=== PATIENT | male | born 1945 | race Caucasian/White ===

== ENCOUNTER 2016-09-15 14:10 | Inpatient (IN) | payer OTHER ==
[~2016-09-15] VITALS: Ht 208.3 cm; Wt 74.8 kg
[2016-09-15 16:55] VITALS: BP 130/91
--- NOTE | 2016-09-15 16:55 | NUR ---
ADMISSION NOTES/ PT DIRECT ADMIT BROUGHT VIA AMBULANCE 71/Y OLD ON 5150 HOLD. ACCORDING ON 5150 HOLD PT. 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 ON FACE TO FACE ASSESSMENT PT. ANXIOUS PARANOID FORGETFUL, A/OX1 UNSTEADY GAIT . V/S TAKEN T-98.1, P-107, BP-130/91, R-20, O2-97 ROOM AIR, NO RESPIRATORY DISTRESS , SKIN ASSESSMENT DONE SKIN INTACT PT.AMBULATORY BPR. PT BELONGING AND CONTRABAND CHECKED . PT RIGHT HAND BOOK GIVEN AND EXPLAINED . DR. MEMBRENO AND DR. RICHARD NOTIFIED OF THE ADMISSION AND NEW MEDICATION, WILL CONTINUE TO MONITORING .
[2016-09-15] MEDS ORDERED: MAGNESIUM HYDROXIDE 30 ML UDC PO PRN (17:00)
[2016-09-15] MEDS ORDERED: ACETAMINOPHEN 325 MG TABLET PO PRN (17:00)
[2016-09-15] MEDS: clonazePAM 0.5 MG TABLET PO PRN (17:10)
--- NOTE | 2016-09-15 17:10 | NUR ---
administered klonopin 0.5 mg po prn for anxiety, paranoia, v/s stable bp-130/91, p-107, continued monitoring.
--- NOTE | 2016-09-15 18:44 | NUR ---
MRSA OF [facility] DONE CALL LAB FOR PICKUP.
--- NOTE | 2016-09-15 19:30 | NUR ---
RN OPENING NOTES: RECEIVED PATIENT IN DINING ROOM AWAKE ALERT ORIENTED X1-2 AND VERBALLY RESPONSIVE. PT NOTED TO BE FORGETFUL, ANXIOUS AND THOUGHTS ARE DISORGANIZED. VERBALIZED HE IS WORRIED ABOUT HIS FAMILY THAT THEY MIGHT BE IN AN ACCIDENT BUT COULD NOT RECALL ANY OF THEIR NAMES. RENDERED EFFECTIVE AND THERAPEUTIC COMMUNICATION. DENIES SI/ HI. PT IS AMBULATORY WITH STEADY GAIT. SAFETY CHECKS DONE Q15 MINS. NEEDS ATTENDED AT ALL TIMES. MONITORED FOR SAFETY AND BEHAVIOR.
[2016-09-15 20:01] VITALS: BP 121/84
[2016-09-16] MEDS: clonazePAM 0.5 MG TABLET PO PRN (06:49)
[2016-09-16 07:05] LABS: ALBUMIN 3.5 g/dL (3.4-5.0); BILIRUBIN,TOTAL 0.7 mg/dL (0.2-1.0); CALCIUM, SERUM 9.1 mg/dL (8.5-10.1); POTASSIUM 3.9 mmol/L (3.5-5.1); TOTAL PROTEIN, SERUM 6.8 g/dL (6.4-8.2)
[2016-09-16] MEDS ORDERED: LORAZEPAM INJ 2 MG/ML VIAL IM STA (07:24)
--- NOTE | 2016-09-16 07:24 | NUR ---
GET PATIENT IN THE OBSERVATION ROOM, CONFUSED, PARANOID, COMBATIVE, EXTREMELY AGITATED, STRIKING OUT STAFF MEMBERS, UNABLE TO CONTROL BEHAVIOR, BEHAVIOR DANGER TO SELF, AND DANGER TO OTHERS, DELUSIONAL, REORIENTED TO PERSON, 1:1 INTERACTION, PATIENT REFUSED V/S TO BE TAKEN. CALLED JUAN A AL AT THIS TIME, CALLED MD AND GET ORDER FOUR POINT RESTRAIN, AND ZYPREXA 5MG/ML IM, AND ATIVAN 1 MG/ML IM X1 NOW ORDER TAKEN AND CARRIED OUT. WITH HELP OF STAFF MEMBERS RN'S, AND DESK ATTENDANT'S PUT 4 POINT RESTRAIN, AND CONTINUED MONITORING FOR SAFETY AND BEHAVIOR Q 15 MINS.
[2016-09-16] MEDS ORDERED: OLANZAPINE 10 MG VIAL IM ONE (07:30)
--- NOTE | 2016-09-16 07:35 | NUR ---
ADMINISTERED ATIVAN 1 MG/ML IM, AND ZYPREXA 5MG/ML IM X1, RIGHT OUTER GLUTEAL AREA PRESCRIBED, 1:1 SITTER NEXT TO THE PATIENT FOR SAFETY CONTINUED MONITORING FOR SAFETY AND BEHAVIOR, AND ALSO MONITORING FOR CIRCULATION.
--- NOTE | 2016-09-16 08:00 | NUR ---
FAMILY ALSO NOTIFIED SON NAME
--- NOTE | 2016-09-16 08:30 | NUR ---
PATIENT CALM AT THIS TIME AFTER MEDICATION WERE ADMINISTERED, A/O X1/2, V/S TAKEN BP-122/81, P-100, R-19, O2 -99 ROOM AIR, REMOVED RESTRAINTS ACCORDING PATIENT BEHAVIOR, SKIN CHECKED NO SKIN BREAKDOWN NOTED. 1:1 SITTER ACCOMPANIED NEXT TO THE DINNING ROOM.
--- NOTE | 2016-09-16 15:29 | NUR ---
Initial Discharge Plan: Patient was residing at [address] [address] . Patient needs placement. SW spoke with patient's son Evan Morgan who stated that he was actively looking for a memory care facility for the patient. RAMILA will follow-up with MD and family regarding most appropriate care and help form a safe and proper discharge.
[2016-09-16 16:00] VITALS: BP 127/90
--- NOTE | 2016-09-16 16:53 | NUR ---
RAMILA faxed Clinical's (Psych H&P, Med H&P, Med list, 5150 hold, face sheet, and nursing note) to case investigator Fahad ( / phone: [phone]) from [facility]. RAMILA will follow-up. AUTh # [phone]
[2016-09-16] MEDS: QUETIAPINE FUMARATE 100 MG TABLET PO SCH (17:35)
[2016-09-16] MEDS: DIVALPROEX SODIUM 125 MG CAP.SPRINK PO SCH (20:15)
[2016-09-16] MEDS: MIRTAZAPINE 15 MG TABLET PO SCH (20:47)
--- NOTE | 2016-09-16 20:48 | NUR ---
GPS/RN NOTE: PATIENT IS ABOUT READY TO GO TO BED, REMERON 15 MG TAB 1 PO GIVEN .
[2016-09-16] MEDS: TEMAZEPAM 7.5 MG CAPSULE PO PRN (20:56)
--- NOTE | 2016-09-16 20:56 | NUR ---
GPS/RN NOTE: RESTORIL 15 MG CAP 1 PO GIVEN.
--- NOTE | 2016-09-16 21:58 | NUR ---
GPS/RN NOTE: PATIENT ASLEEP, SLEEPING PILL EFFECTIVE.
[2016-09-17 06:49] LABS: BASOPHILS % (AUTO) 0.7 % (0.0-2.0); EOSINOPHILS # (AUTO) 0.4 /CMM (0.0-0.7); HEMATOCRIT 43 % (39-51); HEMOGLOBIN 14.1 g/dL (13.5-17.5); LYMPHOCYTES # (AUTO) 1.4 /CMM (0.8-4.8); LYMPHOCYTES % (AUTO) 18.7 % (20.0-44.0); MEAN CORPUSCULAR HEMOGLOBIN 31 PG (26.0-33.0); MEAN CORPUSCULAR HGB CONC 33 g/dl (31.0-36.0); MEAN CORPUSCULAR VOLUME 93 fL (80-96); MONOCYTES % (AUTO) 13.9 % (2.0-12.0); NEUTROPHILS # (AUTO) 4.7 /CMM (1.8-8.9); NEUTROPHILS % (AUTO) 61.7 % (43.0-81.0); PLATELET COUNT (AUTO) 244 /CMM (150-450); RDW COEFFICIENT OF VARIATION 13.5 (11.5-15.0); RED BLOOD CELL COUNT(AUTO) 4.57 MIL/uL (4.5-6.0); WHITE BLOOD COUNT (AUTO) 7.5 K/uL (4.3-11.0)
[2016-09-17 07:10] LABS: PHOSPHORUS 3.4 mg/dL (2.5-4.9)
[2016-09-17] MEDS: QUETIAPINE FUMARATE 100 MG TABLET PO SCH ×2 (08:30→16:21)
[2016-09-17] MEDS: DIVALPROEX SODIUM 125 MG CAP.SPRINK PO SCH ×2 (08:30→21:25)
[2016-09-17 08:52] VITALS: BP 141/78
--- NOTE | 2016-09-17 10:11 | NUR ---
Psychosocial assessment was reviewed and I concur with the information provided. No changes are necessary. Marlene Ramírez, ACCESS ANALYST [id number] Addendum: 09/17/16 at 1011 by MARLENE RAMÍREZ SW Amended: Links added.
--- NOTE | 2016-09-17 14:46 | NUR ---
[id number]: GAVE TYLENOL 650 MG PO DUE TO GENERALIZE PAIN 5/10 UPON PT REQUEST AND WILL CONTINUE TO MONITOR FOR EFFECTIVENESS OF MEDICATION.
[2016-09-17] MEDS: MAG HYDROX/AL HYDROX/SIMETH 30 ML UDC PO PRN (14:47)
--- NOTE | 2016-09-17 14:47 | NUR ---
[id number]: GAVE MAALOX 30 ML PO DUE TO INDIGESTION UPON PT REQUEST AND WILL CONTINUE TO MONITOR FOR EFFECTIVENESS OF MEDICATION
[2016-09-17 16:00] VITALS: BP 126/73
--- NOTE | 2016-09-17 16:02 | NUR ---
[id number]-[id number]: PT IS ANXIOUS, RESTLESS, EASILY AGITATED, UNPREDICTABLE, NEEDS CONSTANT REDIRECTION AND PROMPTING. PT IS DELUSIONAL INTERMITTENTLY THROUGHOUT THE DAY. PT AT TIMES IS CRYING AND REMINISCING ABOUT HIS FAMILY. PT STATED, "I DON'T UNDERSTAND MYSELF SOME TIMES." ENCOURAGE PT TO VERBALIZE EMOTIONS AND CONCERNS. ESCORTED PT AROUND THE UNIT TO DISTRACT PT FROM GETTING UPSET. SAFETY PRECAUTIONS IMPLEMENTED. WILL CONTINUE TO MONITOR FOR SAFETY AND BEHAVIOR EVERY 30 MINUTES.
[2016-09-17] MEDS: clonazePAM 0.5 MG TABLET PO PRN (16:15)
--- NOTE | 2016-09-17 16:16 | NUR ---
[id number]: GAVE KLONOPIN 0.5 MG PO DUE TO SEVERE ANXIETY UPON PT REQUEST AND WILL CONTINUE TO MONITOR FOR EFFECTIVENESS OF MEDICATION
--- NOTE | 2016-09-17 16:22 | NUR ---
UR Update: RAMILA faxed Clinical's (Psych H&P, Med H&P, Med list, face sheet, and nursing note) to case management manager Fahad ( / phone: [phone]) from [facility]. RAMILA will follow-up. AUTh # [phone]
--- NOTE | 2016-09-17 19:30 | NUR ---
GPS RN NOTE, RECEIVED PATIENT AWAKE AND IN BED, NO S/S OR COMPLAINTS OF PAIN AT THIS TIME. PATIENT IS DISPLAYING NO S/S OF APPARENT DISTRESS AT THIS TIME. PATIENT BREATHING IS UNLABORED WITH EQUAL RISE AND FALL OF THE CHEST. PATIENT HAS A 1 TO 1 SITTER FOR SAFETY. PATIENT IS ALERT AND ORIENTED X 1-2 ON ROOM AIR WITH A SPO2 95%. PATIENT SELECTIVE WITH MEDICATIONS, ANXIOUS, DISORGANIZED, CONFUSED AT TIMES, AND NEEDS REORIENTATION. PATIENT DENIES SUICIDE AND HOMICIDAL IDEATIONS AT THIS TIME. PATIENT ASSISTED WITH TURNING AND REPOSITIONING Q2HR AND PRN FOR COMFORT AND CIRCULATION. PATIENT HAS NO NEEDS AT THIS TIME. PATIENT EDUCATED ON THE USE OF THE CALL AVILES. PATIENT BED SIDE RAILS UP X2 FOR SAFETY, BED IS LOCKED AND LOW WILL CONTINUE TO MONITOR AND MAINTAIN SAFETY.
[2016-09-17 20:56] VITALS: BP 126/67
[2016-09-17] MEDS: MIRTAZAPINE 15 MG TABLET PO SCH (21:25)
[2016-09-17] MEDS: TEMAZEPAM 7.5 MG CAPSULE PO PRN (21:26)
--- NOTE | 2016-09-17 21:26 | NUR ---
GPS RN NOTE, PATIENT HAS A COMPLAINT OF NOT BEING ABLE TO SLEEP AND WOULD LIKE A SLEEPING AID AT THIS TIME. PATIENT VITAL SIGNS ARE STABLE. GAVE RESTORIL 15MG PO HS ORDERED. WILL REASSESS PAIN AND I WILL CONTINUE TO MONITOR THIS PATIENT.
[2016-09-18 08:00] VITALS: BP 111/69
[2016-09-18] MEDS: DIVALPROEX SODIUM 125 MG CAP.SPRINK PO SCH ×3 (08:55→16:14)
[2016-09-18] MEDS: QUETIAPINE FUMARATE 100 MG TABLET PO SCH ×2 (08:55→16:13)
--- NOTE | 2016-09-18 09:00 | NUR ---
GPS RN NOTE, RECEIVED PATIENT AWAKE AND IN BED, NO S/S OR COMPLAINTS OF PAIN AT THIS TIME. PATIENT IS DISPLAYING NO S/S OF APPARENT DISTRESS AT THIS TIME. PATIENT BREATHING IS UNLABORED WITH EQUAL RISE AND FALL OF THE CHEST. PATIENT HAS A 1 TO 1 SITTER FOR SAFETY. PATIENT IS ALERT AND ORIENTED X 1-2 ON ROOM AIR WITH A SPO2 96%. PATIENT SELECTIVE WITH MEDICATIONS, ANXIOUS, DISORGANIZED, CONFUSED AT TIMES, AND NEEDS REORIENTATION. PATIENT DENIES SUICIDE AND HOMICIDAL IDEATIONS AT THIS TIME. PATIENT ASSISTED WITH TURNING AND REPOSITIONING Q2HR AND PRN FOR COMFORT AND CIRCULATION. PATIENT HAS NO NEEDS AT THIS TIME. PATIENT EDUCATED ON THE USE OF THE CALL AVILES. PATIENT BED SIDE RAILS UP X2 FOR SAFETY, BED IS LOCKED AND LOW WILL CONTINUE TO MONITOR AND MAINTAIN SAFETY.
[2016-09-18] MEDS: MAG HYDROX/AL HYDROX/SIMETH 30 ML UDC PO PRN (15:18)
--- NOTE | 2016-09-18 15:22 | NUR ---
TONY MANAGER BAKERY NOTES PATIENT IN BED COMPLAINS OF ABDOMINAL PAIN. DR. BARTLETT NOTIFIED ORDERS FOR PROTONIX 40MG DAILY NOTED AND MARIA DEL ROSARIO OUT.
[2016-09-18 16:18] VITALS: BP 117/76
--- NOTE | 2016-09-18 16:39 | NUR ---
UR update: RAMILA faxed Clinical's updated clinicals to [facility] caseworker Adonay ( / phone: [phone]) AUTh # [phone]
--- NOTE | 2016-09-18 18:43 | NUR ---
MS RN NOTES PATIENT IN BED RESTING WITH DAUGHTER AT BEDSIDE. PATIENT ANXIOUS. ALL DUE MEDICATIONS GIVEN. ALL DUE MEDICATIONS GIVEN. WILL ENDORSE TO PM SHIFT IVONNE.
[2016-09-18] MEDS ORDERED: MIRT15TA8 PO (19:01)
[2016-09-18] MEDS ORDERED: QUET50TA PO (19:01)
[2016-09-18] MEDS ORDERED: CHOL200026 PO (19:01)
[2016-09-18] MEDS ORDERED: DONE5TAB34 PO (19:01)
[2016-09-18] MEDS ORDERED: MELA5TAB21 PO (19:01)
[2016-09-18] MEDS ORDERED: ASPI-605 PO (19:01)
[2016-09-18] MEDS ORDERED: MEMA10TA PO (19:01)
[2016-09-18 20:00] VITALS: BP 119/92
[2016-09-18] MEDS: TEMAZEPAM 7.5 MG CAPSULE PO PRN (21:00)
[2016-09-18] MEDS: MIRTAZAPINE 15 MG TABLET PO SCH (21:00)
[2016-09-18] MEDS ORDERED: Medication Not On Formulary EA (Melatonin 5 MG) PO SCH (22:00)
[2016-09-19 08:00] VITALS: BP 130/88
[2016-09-19] MEDS: PANTOPRAZOLE 40 MG TABLET.DR PO SCH (08:50)
[2016-09-19] MEDS: QUETIAPINE FUMARATE 100 MG TABLET PO SCH ×2 (08:52→16:58)
[2016-09-19] MEDS: DIVALPROEX SODIUM 125 MG CAP.SPRINK PO SCH ×3 (08:52→16:58)
[2016-09-19] MEDS: CHOLECALCIFEROL 1,000 UNIT TABLET (VIT D3) PO SCH (08:53)
[2016-09-19] MEDS: ASPIRIN EC 81 MG TABLET.DR PO SCH (08:54)
[2016-09-19] MEDS: clonazePAM 0.5 MG TABLET PO PRN ×2 (10:17→16:58)
--- NOTE | 2016-09-19 10:21 | NUR ---
GPS RN NOTES PT NOTED TO BE RESTLESS ANXIOUS CONFUSED HARD TO REDIRECT THE PT. ADMINISTRATED KLONOPIN 0.5 MG PO PRN , WILL CONTINUE TO MONITOR
--- NOTE | 2016-09-19 15:14 | NUR ---
UR update: RAMILA faxed Clinical's updated clinicals to [place] transplant case manager Giacomo ( / phone: [phone]) AUTh # [phone]
[2016-09-19 16:08] VITALS: BP 130/72
--- NOTE | 2016-09-19 17:01 | NUR ---
GPS RN NOTES PT NOTED TO BE RESTLESS ANXIOUS WANDERING CONFUSED HARD TO REDIRECT THE PT. ADMINISTRATED KLONOPIN 0.5 MG PO PRN , WILL CONTINUE TO MONITOR
--- NOTE | 2016-09-19 19:50 | NUR ---
RN OPENING NOTES RECEIVED REPORT FROM DAYSHIFT RN. FOUND Pt AWAKE, SITTING IN CHAIR IN THE ACTIVITY ROOM WATCHING TV AND CONVERSING WITH OTHER Pt's IN THE ROOM, REBRANDER PRESENT IN THE ROOM. Pt IS A/OX1, CONFUSED, DISORIENTED, VERBAL, ABLE TO MAKE NEEDS KNOWN. NO S/S OF ACUTE DISTRESS OR SOB NOTED. EQUAL CHEST RISE AND FALL. SAFETY MEASURES IN PLACE. WILL CONTINUE TO MONITOR Pt THROUGHOUT THE NIGHT FOR SAFETY.
[2016-09-19 20:00] VITALS: BP 117/73
[2016-09-19] MEDS: MIRTAZAPINE 15 MG TABLET PO SCH (21:24)
[2016-09-19] MEDS: TEMAZEPAM 7.5 MG CAPSULE PO PRN (21:25)
--- NOTE | 2016-09-20 06:48 | NUR ---
RN CLOSING NOTES NO SIGNIFICANT CHANGES DURING THE NIGHT. NO S/S OF ACUTE DISTRESS OR SOB NOTED DURING THE SHIFT. ALL NEEDS MET AND ATTENDED TO. SAFETY MEASURES CARRIED OUT. WILL ENDORSE TO DAYSHIFT RN FOR Pt's IVONNE AND SAFETY.
[2016-09-20 08:02] VITALS: BP 106/62
[2016-09-20] MEDS: QUETIAPINE FUMARATE 100 MG TABLET PO SCH ×2 (09:19→16:51)
[2016-09-20] MEDS: CHOLECALCIFEROL 1,000 UNIT TABLET (VIT D3) PO SCH (09:20)
[2016-09-20] MEDS: DIVALPROEX SODIUM 125 MG CAP.SPRINK PO SCH ×3 (09:20→16:50)
[2016-09-20] MEDS: ASPIRIN EC 81 MG TABLET.DR PO SCH (09:20)
[2016-09-20] MEDS: PANTOPRAZOLE 40 MG TABLET.DR PO SCH (09:20)
[2016-09-20] MEDS: clonazePAM 0.5 MG TABLET PO PRN (09:27)
--- NOTE | 2016-09-20 09:28 | NUR ---
GPS RN: PATIENT IS INCREASINGLY ANXIOUS, RESTLESS, HYPERVERBAL, WITH EPISODES OF CRYING, CONFUSED, HARD TO REDIRECT. ADMINISTERED CLONAZEPAM 0.5MG PO ORDERED. VS STABLE, CONTINUE TO MONITOR.
[2016-09-20 16:09] VITALS: BP 118/60
[2016-09-20 20:00] VITALS: BP 130/82
--- NOTE | 2016-09-20 20:00 | NUR ---
PATIENT IN BED, ALERT AND ORIENTED X1, CONFUSED, RESTLESS, GETTING OUT OF BED UNASSISTED, FALL RISK, NO SOB, NO RESPIRATORY DISTRESS, TOLERATING ROOM AIR, BED ALARM TURNED ON. PATIENT REQUIRES CONSTANT MONITORING FOR SAFETY SECONDARY TO RESTLESSNESS AND BEING A FALL RISK.
[2016-09-20 21:00] VITALS: BP 130/82
[2016-09-20] MEDS: TEMAZEPAM 7.5 MG CAPSULE PO PRN (22:05)
[2016-09-20] MEDS: MIRTAZAPINE 15 MG TABLET PO SCH (22:05)
[2016-09-21] MEDS: clonazePAM 0.5 MG TABLET PO PRN (00:46)
--- NOTE | 2016-09-21 00:48 | NUR ---
RESTORIL INEFFECTIVE, PATIENT GIVEN KLONOPIN 0.5 MG PO. PATIENT REMAINED ON SARAH CHAIR TO BE ABLE TO MONITOR CLOSELY, GETTING OUT OF BED UNASSISTED.
--- NOTE | 2016-09-21 03:02 | NUR ---
KLONOPIN EFFECTIVE, PATIENT SLEEPING COMFORTABLY, BED ALARM TURNED ON. KEPT SAFE AND COMFORTABLE, WILL CONTINUE TO MONITOR.
--- NOTE | 2016-09-21 06:41 | NUR ---
PATIENT IN BED, ALERT AND AWAKE, WITH EPISODES OF RESTLESSNESS, GETTING OUT OF BED UNASSISTED, TALKING TO SELF, GIVEN KLONOPIN, SLEPT WELL, COMPLIANT WITH MEDICATIONS. KEPT SAFE AND COMFORTABLE
[2016-09-21] MEDS: QUETIAPINE FUMARATE 100 MG TABLET PO SCH ×2 (08:02→16:35)
[2016-09-21] MEDS: ASPIRIN EC 81 MG TABLET.DR PO SCH (08:03)
[2016-09-21] MEDS: DIVALPROEX SODIUM 125 MG CAP.SPRINK PO SCH ×3 (08:03→16:34)
[2016-09-21] MEDS: PANTOPRAZOLE 40 MG TABLET.DR PO SCH (08:03)
[2016-09-21] MEDS: CHOLECALCIFEROL 1,000 UNIT TABLET (VIT D3) PO SCH (08:03)
[2016-09-21 08:46] VITALS: BP 126/75
[2016-09-21 16:31] VITALS: BP 125/88
[2016-09-21 20:04] VITALS: BP 135/71
[2016-09-21] MEDS: TEMAZEPAM 7.5 MG CAPSULE PO PRN (21:42)
[2016-09-21] MEDS ORDERED: MIRTAZAPINE 15 MG TABLET PO SCH (22:00)
[2016-09-22] MEDS: clonazePAM 0.5 MG TABLET PO PRN (00:21)
[2016-09-22 08:00] VITALS: BP 114/73
[2016-09-22] MEDS: DIVALPROEX SODIUM 125 MG CAP.SPRINK PO SCH ×3 (08:17→17:19)
[2016-09-22] MEDS: ASPIRIN EC 81 MG TABLET.DR PO SCH (08:17)
[2016-09-22] MEDS: PANTOPRAZOLE 40 MG TABLET.DR PO SCH (08:17)
[2016-09-22] MEDS: CHOLECALCIFEROL 1,000 UNIT TABLET (VIT D3) PO SCH (08:17)
[2016-09-22] MEDS: QUETIAPINE FUMARATE 100 MG TABLET PO SCH ×2 (08:19→17:19)
--- NOTE | 2016-09-22 12:00 | NUR ---
Mansi Ding from [facility] came to assess the patient at 11:30am. SW will follow-up
--- NOTE | 2016-09-22 13:20 | NUR ---
UR update: RAMILA faxed Clinical's updated clinicals to [place] assistant case manager Giacomo ( / phone: [phone]) AUTh # [phone]
--- NOTE | 2016-09-22 15:40 | NUR ---
Mansi Ding, SUPERVISOR [employer] MILL from [facility] confirmed that they were able to accept the patient.
[2016-09-22 16:00] VITALS: BP 126/81
[2016-09-22 20:19] VITALS: BP 103/70
[2016-09-22] MEDS: MIRTAZAPINE 15 MG TABLET PO SCH (21:45)
[2016-09-22] MEDS: TEMAZEPAM 7.5 MG CAPSULE PO PRN (22:58)
[2016-09-23] MEDS: clonazePAM 0.5 MG TABLET PO PRN (01:08)
--- NOTE | 2016-09-23 01:10 | NUR ---
PATIENT IN BED, AWAKE, MUMBLING, TALKING TO SELF NONSENSICAL STUFF. PATIENT IS ALSO CONFUSED AND DELUSIONAL. REALITY ORIENTATION DONE. LIMIT SETTING DONE. VITAL SIGNS CHECKED BP 130/82 HR-90, O2 SAT-98% ON ROOM AIR. KLONOPIN MEDICATION GIVEN ORDERED. WILL MONITOR PATIENT FOR MOOD, SAFETY AND BEHAVIOR.
[2016-09-23 08:00] VITALS: BP 130/62
[2016-09-23] MEDS: DIVALPROEX SODIUM 125 MG CAP.SPRINK PO SCH ×3 (08:45→17:14)
[2016-09-23] MEDS: CHOLECALCIFEROL 1,000 UNIT TABLET (VIT D3) PO SCH (08:46)
[2016-09-23] MEDS: ASPIRIN EC 81 MG TABLET.DR PO SCH (08:46)
[2016-09-23] MEDS: QUETIAPINE FUMARATE 100 MG TABLET PO SCH ×2 (08:46→17:14)
[2016-09-23] MEDS: PANTOPRAZOLE 40 MG TABLET.DR PO SCH (08:46)
--- NOTE | 2016-09-23 14:39 | NUR ---
RAMILA spoke to Giacomo [phone] watch case polisher from [place] who stated that patient will be authorized until tomorrow. RAMILA will follow-up with Giacomo.
--- NOTE | 2016-09-23 14:41 | NUR ---
SW spoke to patient's son José who stated that he wants his father placed in a half-way facility.
[2016-09-23 16:00] VITALS: BP 123/67
--- NOTE | 2016-09-23 16:42 | NUR ---
UR update: RAMILA faxed Clinical's updated clinicals to [place] director of casework Giacomo ( / phone: [phone]) AUTh # [phone]
--- NOTE | 2016-09-23 16:56 | NUR ---
Roxy from [facility] came to assess the patient at 4:15pm.
[2016-09-23 20:16] VITALS: BP 127/62
[2016-09-23] MEDS: MIRTAZAPINE 15 MG TABLET PO SCH (21:45)
[2016-09-24] MEDS: clonazePAM 0.5 MG TABLET PO PRN (02:46)
[2016-09-24 07:15] LABS: BASOPHILS % (AUTO) 0.3 % (0.0-2.0); EOSINOPHILS # (AUTO) 0.1 /CMM (0.0-0.7); EOSINOPHILS % (AUTO) 1.5 % (0.0-6.0); HEMATOCRIT 44 % (39-51); HEMOGLOBIN 14.6 g/dL (13.5-17.5); LYMPHOCYTES # (AUTO) 1.1 /CMM (0.8-4.8); LYMPHOCYTES % (AUTO) 12.9 % (20.0-44.0); MEAN CORPUSCULAR HEMOGLOBIN 31 PG (26.0-33.0); MEAN CORPUSCULAR HGB CONC 34 g/dl (31.0-36.0); MEAN CORPUSCULAR VOLUME 93 fL (80-96); MONOCYTES # (AUTO) 0.9 /CMM (0.1-1.30); MONOCYTES % (AUTO) 10.6 % (2.0-12.0); NEUTROPHILS # (AUTO) 6.2 /CMM (1.8-8.9); NEUTROPHILS % (AUTO) 74.7 % (43.0-81.0); PLATELET COUNT (AUTO) 234 /CMM (150-450); RDW COEFFICIENT OF VARIATION 13.9 (11.5-15.0); RED BLOOD CELL COUNT(AUTO) 4.68 MIL/uL (4.5-6.0); WHITE BLOOD COUNT (AUTO) 8.3 K/uL (4.3-11.0)
[2016-09-24 07:39] LABS: CALCIUM, SERUM 9.4 mg/dL (8.5-10.1); MAGNESIUM 2.1 mg/dL (1.8-2.4); POTASSIUM 3.9 mmol/L (3.5-5.1)
[2016-09-24 08:00] VITALS: BP 119/86
[2016-09-24] MEDS: PANTOPRAZOLE 40 MG TABLET.DR PO SCH (08:16)
[2016-09-24] MEDS: CHOLECALCIFEROL 1,000 UNIT TABLET (VIT D3) PO SCH (08:17)
[2016-09-24] MEDS: QUETIAPINE FUMARATE 100 MG TABLET PO SCH ×2 (08:17→08:21)
[2016-09-24] MEDS: DIVALPROEX SODIUM 125 MG CAP.SPRINK PO SCH (08:17)
[2016-09-24] MEDS: ASPIRIN EC 81 MG TABLET.DR PO SCH (08:17)
--- NOTE | 2016-09-24 08:21 | NUR ---
PT IS SLEEPING G AT THIS TIME NON ADMINISTERED SEROQUEL 9 AM AT THIS TIME
--- NOTE | 2016-09-24 11:15 | NUR ---
[id number]: PT IS 71 YEARS OLD MALE DISCHARGE TO [facility] [address] [facility]. [facility], [address], IN STABLE CONDITION. COMPLAINT WITH MEDICATIONS, COOPERATIVE WITH TREATMENT PLANS. PT DENIES SI/HI/AVH. BEHAVIOR IMPROVED, PSYCHIATRIC TX PLANS MET, MEDICAL TX PLANS DEFERRED FOR CONTINUAL MONITORING. EDUCATED PT ABOUT AFTER CARE PLAN AND COPY PROVIDED. RETURNED PERSONAL BELONGINGS TO PT. MEDICATIONS RECONCILED WITH DR. MEMBRENO AND DR. MAYFIELD. REPORT GIVEN TO STEVE LEA FOR CONTINUITY OF CARE. PT REFUSED TO SIGN DISCHARGE PAPERWORK. SKIN ASSESSMENT DONE. PT LEFT THE UNIT ACCOMPANIED BY STEVE LEA VIA PRIVATE CAR.
--- NOTE | 2016-09-24 13:55 | NUR ---
Discharge Note: Patient was discharged to [facility] [address] [place] [address]. Patient's son Evan was notified and picked him up via private vehicle. Patient and patient's son Evan were both agreeable with the discharge plan. Patient was calm and cooperative with appropriate mood and affect. Patient denied suicidal and homicidal ideations. Patient and patient's son were provided resources to the [facility], [address] [facility] [address] [place] [address] . Giacomo [phone] showcase maker for [facility]. will also follow-up with patient's son Evan regarding a follow-up appointment with the psychiatrist. Patient's son Evan was notified that an appointment should be made in 30 days to follow-up with a psychiatrist. Discharge instructions were provided to the niece and the patient and discharge paperwork has been signed.
== END 2016-09-24 11:15 | DRG 885 ==
LOC: GPS 16:13
PROVIDERS: ADMIT Psychiatry & Neurology Psychiatry; ATTEND Internal Medicine
DX: F29 Unspecified psychosis not due to a substance or known physiological condition (principal); F02.81 Dementia in other diseases classified elsewhere, unspecified severity, with behavioral disturbance; F39 Unspecified mood [affective] disorder; G30.9 Alzheimer's disease, unspecified
CPT/HCPCS: 36415; 71010-TC; 80048-TC; 80053-TC; 80061-TC; 80164-TC; 83735-TC; 84100-TC; 85025-TC; 87081-TC; J2060; J3490